=== PATIENT | female | born 1990 | race African-American/Black ===

== ENCOUNTER 2016-10-12 21:07 | Emergency (ER) | payer OTHER ==
[~2016-10-12 21:07] MED LIST: Sodium Chloride 0.9% 1,000 ML BAG ONE
[2016-10-12] MEDS ORDERED: diphenhydrAMINE HCl 50 MG/ML 1 ML VIAL ONE (22:55)
[2016-10-12] MEDS ORDERED: Ketorolac Tromethamine 30 MG/ML VIAL ONE (22:56)
[2016-10-12] MEDS ORDERED: Metoclopramide HCl 10 MG/2 ML VIAL ONE (22:56)
[2016-10-12] MEDS ORDERED: Ondansetron HCl/PF 4 MG/2 ML Vial ONE (22:57)
== END 2016-10-13 00:10 | disposition home or self-care (01) ==
LOC: MADERS 21:07
DX: G43.909 Migraine, unspecified, not intractable, without status migrainosus (principal); S10.96XA Insect bite of unspecified part of neck, initial encounter; W57.XXXA Bitten or stung by nonvenomous insect and other nonvenomous arthropods, initial encounter
CPT/HCPCS: 96361; 96372; 96374; 96375; J1040; J1200; J1885; J2405; J2765; J7050